=== PATIENT | male | born 1970 | race Caucasian/White ===

== ENCOUNTER 2018-07-29 13:11 | Emergency (ER) | payer BC, MEDICARE ==
[2018-07-29] MEDS ORDERED: Acetaminophen/Butalbital/Caffeine 325-50-40 MG Tab PO ONE (14:23)
[2018-07-29] MEDS ORDERED: Lactated Ringers 1,000 ML IV SCH (14:30)
--- NOTE | 2018-07-29 14:30 | EDM.PDOC ---
ED HPI GENERAL MEDICAL PROBLEM - General Chief Complaint: Gastrointestinal Problem Stated Complaint: DIARRHEA CHILLS AND BODY ACHES Time Seen by Provider: 07/29/18 13:39 Source of Information: Reports: Patient History Limitations: Reports: No Limitations - History of Present Illness INITIAL COMMENTS - FREE TEXT/NARRATIVE: 48 y/o M presents to ED for Diarrhea, body aches, chills x 1 day. He works at [employer], where there are multiple sick contacts- he is unsure if the have similar symptoms. He did not have flu vaccine. He also c/o MCDOWELL behind his eyes that Tylenol and ibuprofen have not helped relieve. He c/o lower abdominal pain, diarrhea 5x yesterday and x1 today, no blood in the stool, Fever /chills yesterday, body aches. He denies N/V, decreased appetite, SOB, CP, wheezing, cough. He does have a h/o diverticulitis and he states the abdominal pain feels similar to that. He also has h/o hospitalization 5 years ago for PNA and PE d/t rheumatoid arthritis medication "killing my immune system". He has had appendectomy. Headache Pain Score (Numeric/FACES): 7 Generalized Pain Score (Numeric/FACES): 8 - Related Data Allergies Allergy/AdvReac Type Severity Reaction Status Date / Time cefazolin [From Anc] Allergy Redness Verified 07/29/18 13:37 grape fruit juice Allergy Hives Uncoded 07/29/18 13:37 Home Meds: Home Meds DULoxetine [Cymbalta] 30 mg PO ASDIRECTED 03/30/18 [History] DULoxetine [Cymbalta] 60 mg PO ASDIRECTED 03/30/18 [History] Diltiazem HCl [Cartia Xt] 240 mg PO ASDIRECTED 03/30/18 [History] Doxycycline [Vibramycin] 100 mg PO BID #12 cap 03/30/18 [Rx] Ergocalciferol (Vitamin D2) [Drisdol] 50,000 unit PO ASDIRECTED 03/30/18 [ History] Hydroxychloroquine [Plaquenil] 200 mg PO ASDIRECTED 03/30/18 [History] Indapamide 1.25 mg PO ASDIRECTED 03/30/18 [History] Levothyroxine 25 mcg PO ASDIRECTED 03/30/18 [History] Lisinopril 40 mg PO ASDIRECTED 03/30/18 [History] Mirtazapine [Remeron] 45 mg PO ASDIRECTED 03/30/18 [History] Saxagliptin HCl [Onglyza] 2.5 mg PO ASDIRECTED 03/30/18 [History] Tofacitinib Citrate [Xeljanz] 5 mg PO ASDIRECTED 03/30/18 [History] atorvaSTATin Calcium [Atorvastatin Calcium] 80 mg PO ASDIRECTED 03/30/18 [ History] glipiZIDE [Glipizide Xl] 5 mg PO BID 03/30/18 [History] hydrALAZINE [Apresoline] 10 mg PO ASDIRECTED 03/30/18 [History] traZODone HCl [Trazodone HCl] 100 mg PO ASDIRECTED 03/30/18 [History] Past Medical History Cardiovascular History: Reports: Hypertension Respiratory History: Reports: Intubation, Previous, PE Other Respiratory History: pt was in "coma" for 1 month Musculoskeletal History: Reports: RA Neurological History: Reports: Other (See Below) Other Neuro History: pt was in a "coma" for 1 month Psychiatric History: Reports: Depression, PTSD Endocrine/Metabolic History: Reports: Diabetes, Type II - Past Surgical History Neurological Surgical History: Reports: Other (See Below) Social & Family History - Tobacco Use Smoking Status *Q: Never Smoker - Caffeine Use Caffeine Use: Reports: Soda - Recreational Drug Use Recreational Drug Use: No - Living Situation & Occupation Occupation: Employed ED ROS GENERAL - Review of Systems Review Of Systems: See Below Constitutional: Reports: No Symptoms. Denies: Fever, Chills, Decreased Appetite HEENT: Reports: Other (MCDOWELL) Respiratory: Reports: No Symptoms. Denies: Shortness of Breath, Cough Cardiovascular: Reports: Blood Pressure Problem. Denies: Chest Pain, Edema Endocrine: Reports: No Symptoms GI/Abdominal: Reports: Abdominal Pain (lower quadrants), Diarrhea. Denies: Decreased Appetite, Nausea : Reports: No Symptoms Musculoskeletal: Reports: No Symptoms Skin: Reports: Rash (intermittent rash on R arm and chest) Neurological: Reports: Headache. Denies: Dizziness ED EXAM, GI/ABD - Physical Exam Exam: See Below Exam Limited By: No Limitations General Appearance: Alert Eyes: Bilateral: EOMI Ears: Normal External Exam, Hearing Grossly Normal Nose: Normal Inspection, Normal Mucosa, No Blood Throat/Mouth: Normal Teeth, Normal Gums, Normal Oropharynx, Normal Voice, No Airway Compromise. No: Normal Lips (dry) Head: Atraumatic, Normocephalic Neck: Normal Inspection, Supple, Non-Tender, Full Range of Motion Respiratory/Chest: No Respiratory Distress, Lungs Clear, Normal Breath Sounds, No Accessory Muscle Use, Chest Non-Tender Cardiovascular: Normal Peripheral Pulses, Regular Rate, Rhythm, No Edema, No Gallop, No JVD, No Murmur, No Rub GI/Abdominal Exam: Soft, No Organomegaly, No Distention, Rebound, Tender (lower quadrants), Abnormal Bowel Sounds (hyperactive) Course - Vital Signs Last Recorded V/S: Last Vital Signs Temp 98.0 F 07/29/18 13:37 Pulse 84 07/29/18 13:37 Resp 18 07/29/18 13:37 BP 138/93 H 07/29/18 13:37 Pulse Ox 93 L 07/29/18 13:37 - Orders/Labs/Meds Orders: Active Orders 24 hr Category Date Time Status Abdomen w Cont [CT] Stat Exams 07/29/18 14:22 Taken Lactated Ringers [Ringers, Lactated] 1,000 ml Med 07/29/18 14:30 Active IV ASDIRECTED Sodium Chloride 0.9% [Saline Flush] Med 07/29/18 15:29 Active 10 ml FLUSH ONETIME PRN Medication Orders Lactated Ringer's (Ringers, Lactated) 1,000 mls @ 999 mls/hr IV ASDIRECTED YANA Last Admin: 07/29/18 14:42 Dose: 999 mls/hr Sodium Chloride (Saline Flush) 10 ml FLUSH ONETIME PRN PRN Reason: IV FLUSH Last Admin: 07/29/18 15:43 Dose: 10 ml Labs: Laboratory Tests 07/29/18 07/29/18 Range/Units 14:35 14:35 WBC 9.07 (4.23-9.07) K/mm3 RBC 4.88 (4.63-6.08) M/mm3 Hgb 14.3 (13.7-17.5) gm/L Hct 43.0 (40.1-51.0) % MCV 88.1 (79.0-92.2) fl MCH 29.3 (25.7-32.2) pg MCHC 33.3 (32.2-35.5) g/dl RDW Std Deviation 46.8 H (35.1-43.9) fL Plt Count 249 (163-337) K/mm3 MPV 9.9 (9.4-12.3) fl Neut % (Auto) 66.1 (34.0-67.9) % Lymph % (Auto) 15.4 L (21.8-53.1) % [place] % (Auto) 17.0 H (5.3-12.2) % Eos % (Auto) 1.2 (0.8-7.0) Baso % (Auto) 0.1 (0.1-1.2) % Neut # (Auto) 5.99 H (1.78-5.38) K/mm3 Lymph # (Auto) 1.40 (1.32-3.57) K/mm3 [place] # (Auto) 1.54 H (0.30-0.82) K/mm3 Eos # (Auto) 0.11 (0.04-0.54) K/mm3 Baso # (Auto) 0.01 (0.01-0.08) K/mm3 Manual Slide Review Normal smear Sodium 143 (136-145) mEq/L Potassium 2.8 L (3.5-5.1) mEq/L Chloride 102 (98-107) mEq/L Carbon Dioxide 27 (21-32) mEq/L Anion Gap 16.8 H (5-15) BUN 17 (7-18) mg/dL Creatinine 1.3 (0.7-1.3) mg/dL Est Cr Clr Drug Dosing 75.44 mL/min Estimated GFR (MDRD) 59 (>60) mL/min BUN/Creatinine Ratio 13.1 L (14-18) Glucose 105 (74-106) mg/dL Calcium 8.7 (8.5-10.1) mg/dL Total Bilirubin 0.5 (0.2-1.0) mg/dL AST 25 (15-37) U/L ALT 27 (16-63) U/L Alkaline Phosphatase 60 (46-116) U/L Total Protein 7.4 (6.4-8.2) g/dl Albumin 3.6 (3.4-5.0) g/dl Globulin 3.8 gm/dL Albumin/Globulin Ratio 1.0 (1-2) Meds: Medications Generic Name Dose Route Start Last Admin Trade Name Freq PRN Reason Stop Dose Admin Lactated Ringer's 1,000 mls @ 999 mls/hr 07/29/18 14:30 07/29/18 14:42 Ringers, Lactated IV 999 mls/hr ASDIRECTED YANA Administration Sodium Chloride 10 ml 07/29/18 15:29 07/29/18 15:43 Saline Flush FLUSH 10 ml ONETIME PRN Administration IV FLUSH Discontinued Medications Generic Name Dose Route Start Last Admin Trade Name Freq PRN Reason Stop Dose Admin Acetaminophen/Butalbital/Caffeine 1 tab 07/29/18 14:23 07/29/18 14:47 Fioricet 325-50-40 Mg PO 07/29/18 14:24 1 tab ONETIME ONE Administration Diatrizoate Meglum/Diatrizoate Sod 120 ml 07/29/18 15:29 07/29/18 15:43 Gastrografin 37% PO 07/29/18 15:30 90 ml ONETIME ONE Administration Iopamidol 100 ml 07/29/18 15:29 07/29/18 15:43 Isovue-300 (61%) IVPUSH 07/29/18 15:30 100 ml ONETIME ONE Administration Potassium Chloride 40 meq 07/29/18 15:44 07/29/18 16:17 Klor-Con M20 PO 07/29/18 15:45 40 meq ONETIME ONE Administration - Re-Assessments/Exams Free Text/Narrative Re-Assessment/Exam: 07/29/18 14:29 I have ordered IVF, CBC, CMP, Influenza and CT abdomen. 07/29/18 15:43 Labs WNL except potassium low at 2.8 and Agap elevated at 16.8. He is receiving 1L lactated ringers. Will replace potassium. Influenza negative. Still awaiting CT abdomen. 07/29/18 16:47 CT abdomen report back. There is a "boggy thickwalled appearance of the R hemicolon may indicate infection or colitis". At this time, unsure if caused by bacteria or virus, but he has no fever and no leukocytosis. At this time, it seems conservative measures with diet and symptomatic relief is appropriate. Explained this and he understands and agrees with this plan. Follow up with PCP or return to ED if new or worsening symptoms. Departure - Departure Time of Disposition: 16:49 Disposition: Home, Self-Care 01 Condition: Good, Fair Clinical Impression: Gastroenteritis, Colitis - Discharge Information *PRESCRIPTION DRUG MONITORING PROGRAM REVIEWED*: Not Applicable *COPY OF PRESCRIPTION DRUG MONITORING REPORT IN PATIENT ARIADNA: Not Applicable Instructions: Dehydration, Adult, [id number], Abdominal Pain, Adult, Easy-to- Read, Diarrhea, Adult, [id number], Food Choices to Help Relieve Diarrhea, Adult, Viral Gastroenteritis, Adult, [id number] Referrals: Sebastian Flood MD [Primary Care Provider] - Forms: ED Department Discharge Additional Instructions: You were seen in the ED today for diarrhea and abdominal pain. No fever or chills today. Your labs did not show signs of infection. CT abdomen showed there is some evidence of nonspecific inflammation of the colon, may or may not be caused by infection. At this time, conservative treatment is recommended. BRAT diet (Banana, Rice, Applesauce, [place]) and plenty of fluids (Water, Gatorade, Pedialyte) and rest are recommended. Return to work only if you feel up to it, otherwise get plenty of rest. Return to ED if new or worsening symptom. Follow up with your primary care doctor for further workup. - My Orders Last 24 Hours: My Active Orders 07/29/18 14:22 Abdomen w Cont [CT] Stat 07/29/18 14:30 Lactated Ringers [Ringers, Lactated] 1,000 ml IV ASDIRECTED 07/29/18 15:29 Sodium Chloride 0.9% [Saline Flush] 10 ml FLUSH ONETIME PRN - Assessment/Plan Last 24 Hours: My Active Orders 07/29/18 14:22 Abdomen w Cont [CT] Stat 07/29/18 14:30 Lactated Ringers [Ringers, Lactated] 1,000 ml IV ASDIRECTED 07/29/18 15:29 Sodium Chloride 0.9% [Saline Flush] 10 ml FLUSH ONETIME PRN
[2018-07-29] MEDS ORDERED: Sodium Chloride 0.9% 10 ML Syringe FLUSH PRN (15:29)
[2018-07-29] MEDS ORDERED: Iopamidol 612 MG/ML 100 ML Bottle IVPUSH ONE (15:29)
[2018-07-29] MEDS ORDERED: Diatrizoate Meglumine/Diatrizoate Sodium 37% 120 ML Bottle PO ONE (15:29)
[2018-07-29] MEDS ORDERED: Potassium Chloride 20 MEQ Tab.ER PO ONE (15:44)
--- NOTE | 2018-07-30 14:15 | CT ---
CT abdomen and pelvis Technique: Multiple axial sections were obtained from above the dome of the diaphragm inferiorly through the pubic symphysis. Intravenous and oral contrast was utilized. Delayed images were obtained through the bladder. Comparison: No previous study. Findings: Small portion of the visualized lung bases shows emphysematous change but nothing acute. Liver contains no focal parenchymal abnormality. Gallbladder contains no calcified gallstones. Spleen appears within normal limits. Adrenal glands show no nodule. Pancreas is within normal limits. Small cortical cyst is noted within the mid right kidney measuring 8 mm. Two larger cortical cysts are seen within the left kidney with largest measuring 2.5 cm. No additional abnormality is appreciated within the kidneys. Aorta shows no aneurysm. No retroperitoneal adenopathy or mesenteric abnormalities are seen. Small fat-containing periumbilical hernia is noted. No retroperitoneal adenopathy is seen. No mesenteric abnormalities are identified. Slightly prominent lymph nodes are seen within the right lower abdomen. Mild bowel wall thickening is noted within the right colon and cecum. Appendix not visualized with certainty. Previous sigmoid surgery is noted with anastomotic sutures being seen. No inflammatory change or free fluid is seen. Increased fluid is seen within the left colon and sigmoid regions. Bone windows settings were reviewed which shows mild scattered degenerative change within the spine. Artifact is noted from left hip prosthesis. Small fat-containing left inguinal hernia is noted. Delayed images show contrast within the distal ureters and within the bladder. Impression: 1. Bowel wall thickening within the right colon and cecum. This is compatible with nonspecific colitis. Slightly prominent lymph nodes are seen within the right lower abdomen most likely on an inflammatory basis from the right colonic process. 2. Emphysematous change within both lung bases. 3. Increased fluid within the left colon and sigmoid regions are present in the possibility of diarrhea. Please correlate. 4. Other incidental findings as noted above. Diagnostic code #3 I agree with preliminary report from [facility], finalized on 07/29/18, 5:31 PM Central Time
== END 2018-07-29 17:05 | disposition home or self-care (01) ==
LOC: JD.ED 13:11
DX: K52.9 Noninfective gastroenteritis and colitis, unspecified (principal); I10 Essential (primary) hypertension; E11.9 Type 2 diabetes mellitus without complications; M06.9 Rheumatoid arthritis, unspecified; Z79.899 Other long term (current) drug therapy; Z91.018 Allergy to other foods; Z90.49 Acquired absence of other specified parts of digestive tract
CPT/HCPCS: 36415; 74160; 80053; 85025; 87804; 96360; 99284; A9270; J7120; Q9963; Q9967

== ENCOUNTER 2019-03-22 08:23 | Day surgery (SDC) | payer BC, MEDICARE ==
[~2019-03-22 08:23] MED LIST: Lactated Ringers 1,000 ML IV SCH; Lidocaine 1%/Sod Bicarbonate in NS 8.4% 1 ML Syringe IDERM PRN; Sodium Chloride 0.9% 10 ML Syringe FLUSH PRN
--- NOTE | 2019-03-22 09:08 | PCM.PREANE ---
Preanesthetic Assessment - Procedure Proposed Procedure: Colonoscopy - Anesthesia/Transfusion/Family Hx Anesthesia History: Prior Anesthesia Without Reaction Family History of Anesthesia Reaction: No Transfusion History: No Prior Transfusion(s) - Review of Systems General: No Symptoms Pulmonary: No Symptoms Cardiovascular: No Symptoms Gastrointestinal: No Symptoms Neurological: No Symptoms Other: Reports: Diabetes (168 this am), Thyroid Problems (hypothyroid) - Physical Assessment NPO Status Date: 03/21/19 NPO Status Time: 00:00 Height: 1.83 m Weight: 90.6 kg ASA Class: 2 Mental Status: Alert & Oriented x3 Airway Class: Mallampati = 1 Dentition: Reports: Normal Dentition Thyro-Mental Finger Breadths: 3 Mouth Opening Finger Breadths: 3 ROM/Head Extension: Full Lungs: Clear to Auscultation, Normal Respiratory Effort Cardiovascular: Irregular Rhythm - Allergies Allergies/Adverse Reactions: Allergies Allergy/AdvReac Type Severity Reaction Status Date / Time cefazolin [From Ancef] Allergy Redness Verified 03/21/19 13:00 grape fruit juice Allergy Hives Uncoded 03/21/19 13:00 - Blood Blood Available: No Product(s) Available: None - Anesthesia Plan Pre-Op Medication Ordered: None - Acknowledgements Anesthesia Type Planned: MAC Pt an Appropriate Candidate for the Planned Anesthesia: Yes Alternatives and Risks of Anesthesia Discussed w Pt/Guardian: Yes Pt/Guardian Understands and Agrees with Anesthesia Plan: Yes PreAnesthesia Questionnaire HEENT History: Reports: Allergic Rhinitis, Impaired Vision, Other (See Below) Other HEENT History: wears glasses Cardiovascular History: Reports: High Cholesterol, Hypertension Respiratory History: Reports: None Other Respiratory History: pt was in "coma" for 1 month Gastrointestinal History: Reports: Diverticulosis, Other (See Below) Other Gastrointestinal History: cdff with fecal transplant Genitourinary History: Reports: None [employer] EQUIPMENT [employer] ENGINEER History: Reports: None Musculoskeletal History: Reports: Arthritis, RA Neurological History: Reports: Migraines Other Neuro History: pt was in a "coma" for 1 month Psychiatric History: Reports: Anxiety, Depression Endocrine/Metabolic History: Reports: Diabetes, Type II, Hypothyroidism Hematologic History: Reports: None Immunologic History: Reports: None Oncologic (Cancer) History: Reports: None Dermatologic History: Reports: None - Past Surgical History Cardiovascular Surgical History: Reports: None Respiratory Surgical History: Reports: None GI Surgical History: Reports: Other (See Below) Other GI Surgeries/Procedures: colostomy with take down 15 years ago (approx 2003) Female Surgical History: Reports: None Male Surgical History: Reports: None Endocrine Surgical History: Reports: None Neurological Surgical History: Reports: None Musculoskeletal Surgical History: Reports: Hip Replacement, Shoulder Surgery Other Musculoskeletal Surgeries/Procedures:: left total hip replacement, right shoulder surgery, bilateral wrist replacements Oncologic Surgical History: Reports: None Dermatological Surgical History: Reports: None - SUBSTANCE USE Smoking Status *Q: Never Smoker Second Hand Smoke Exposure: No Days Per Week of Alcohol Use: 0 Number of Drinks Per Day: 0 Total Drinks Per Week: 0 Recreational Drug Use History: No - HOME MEDS Home Medications: Home Meds DULoxetine [Cymbalta] 30 mg PO DAILY 03/30/18 [History] DULoxetine [Cymbalta] 60 mg PO DAILY 03/30/18 [History] Diltiazem HCl [Cartia Xt] 240 mg PO DAILY 03/30/18 [History] Hydroxychloroquine [Plaquenil] 200 mg PO DAILY 03/30/18 [History] Levothyroxine 25 mcg PO DAILY 03/30/18 [History] Lisinopril 40 mg PO DAILY 03/30/18 [History] Mirtazapine [Remeron] 45 mg PO BEDTIME 03/30/18 [History] Saxagliptin HCl [Onglyza] 2.5 mg PO DAILY 03/30/18 [History] Tofacitinib Citrate [Xeljanz] 5 mg PO Q12H 03/30/18 [History] atorvaSTATin Calcium [Atorvastatin Calcium] 80 mg PO ASDIRECTED 03/30/18 [ History] glipiZIDE [Glipizide Xl] 5 mg PO BID 03/30/18 [History] hydrALAZINE [Apresoline] 10 mg PO ASDIRECTED 03/30/18 [History] Indapamide 2.5 mg PO DAILY 03/21/19 [History] hydrALAZINE HCl [Hydralazine HCl] 10 mg PO BID 03/21/19 [History] - CURRENT (IN HOUSE) MEDS Current Meds: Current Medications Lactated Ringer's (Ringers, Lactated) 1,000 mls @ 125 mls/hr IV ASDIRECTED YANA Stop: 03/22/19 23:00 Lidocaine/Sodium Bicarbonate (Buffered Lidocaine 1% In Ns 8.4%) 0.25 ml IDERM ONETIME PRN PRN Reason: Prior to IV Start Stop: 03/22/19 18:00 Sodium Chloride (Saline Flush) 10 ml FLUSH ASDIRECTED PRN PRN Reason: Keep Vein Open Stop: 03/22/19 18:00
[2019-03-22] MEDS ORDERED: Propofol 200 MG/20 ML SDV ONE ×4 (09:59→11:06)
[2019-03-22] MEDS ORDERED: Lidocaine 1% 4 ML ONE (10:00)
[2019-03-22] MEDS ORDERED: Midazolam 1 MG/ML 2 ML SDV ONE (10:00)
[2019-03-22] MEDS ORDERED: fentaNYL 100 MCG/2 ML SDV ONE (10:00)
[2019-03-22] MEDS ORDERED: Lactated Ringers 1,000 ML ONE (11:25)
--- NOTE | 2019-03-22 11:26 | PCM.PRGIL ---
Lower GI Endoscopy Procedure Procedure:: Reports: Colonoscopy Informed Consent Obtained?: Yes Indications:: Reports: Screening Rectodigital Exam:: Reports: Normal Exam Sedation:: Reports: IV Depth Reached (Location):: Reports: Ascending Colon Depth Reached (cm):: 90 - Findings Rectal:: Reports: Normal Hemorrhoids:: Reports: None Previous Colon Surgery (Location):: Reports: Sigmoid Previous Colon Surgery Comments:: End to side colorectal anastomosis visualized and appears healthy. A few scattered diverticula noted in descending colon. Stenosis (Location):: Reports: None Complications:: Reports: None Cultures:: Reports: None (Digital exam unremarkable. Prep was good. Unable to advance the scope much further than the distal descending colon due to looping. No significant intraluminal pathology noted. Anastomosis from prior sigmoid colectomy for diverticular disease noted. Retroflexion in rectum performed. )
--- NOTE | 2019-03-22 11:31 | PCM48HPAN ---
Post Anesthesia Note - EVALUATION WITHIN 48HRS OF ANESTHETIC Vital Signs in Normal Range: Yes Patient Participated in Evaluation: Yes Respiratory Function Stable: Yes Airway Patent: Yes Cardiovascular Function Stable: Yes Hydration Status Stable: Yes Pain Control Satisfactory: Yes Nausea and Vomiting Control Satisfactory: Yes Mental Status Recovered: Yes Vital Signs: Last Vital Signs Temp 36.7 C 03/22/19 08:35 Pulse 55 L 03/22/19 08:35 Resp 16 03/22/19 08:35 BP 149/95 H 03/22/19 08:35 Pulse Ox 92 L 03/22/19 08:35 - COMMENTS/OBSERVATIONS Free Text/Narrative:: no anesthesia complications noted
== END 2019-03-22 12:45 | disposition home or self-care (01) ==
LOC: JD.SDS 08:23
PROVIDERS: ATTEND Surgery
DX: Z12.11 Encounter for screening for malignant neoplasm of colon (principal); K57.30 Diverticulosis of large intestine without perforation or abscess without bleeding; I10 Essential (primary) hypertension; E11.9 Type 2 diabetes mellitus without complications; E03.9 Hypothyroidism, unspecified; F41.9 Anxiety disorder, unspecified; M06.9 Rheumatoid arthritis, unspecified; Z88.1 Allergy status to other antibiotic agents; Z90.49 Acquired absence of other specified parts of digestive tract; Z86.010 Personal history of colon polyps; Z87.19 Personal history of other diseases of the digestive system; Z79.84 Long term (current) use of oral hypoglycemic drugs; Z79.899 Other long term (current) drug therapy; Z98.890 Other specified postprocedural states
CPT/HCPCS: 45378; 82962; J2001; J2250; J2704; J3010; J7120; 00812

== ENCOUNTER 2019-08-05 12:38 | Emergency (ER) | payer BC, MEDICARE ==
[2019-08-05] MEDS ORDERED: Sodium Chloride 0.9% 10 ML Syringe FLUSH PRN (14:15)
[2019-08-05] MEDS ORDERED: Ketorolac 30 MG/ML SDV IVPUSH ONE (14:19)
[2019-08-05] MEDS ORDERED: Sodium Chloride 0.9% 1,000 ML IV ONE (14:19)
[2019-08-05] MEDS ORDERED: Ondansetron 4 MG/2 ML SDV IVPUSH ONE (14:19)
--- NOTE | 2019-08-05 14:30 | EDM.PDOC ---
ED HPI GENERAL MEDICAL PROBLEM - General Chief Complaint: Respiratory Problem Stated Complaint: NAUSEA (POSS EXPOSURE TO BLACK MOLD) Time Seen by Provider: 08/05/19 13:56 Source of Information: Reports: Patient, RN Notes Reviewed History Limitations: Reports: No Limitations - History of Present Illness INITIAL COMMENTS - FREE TEXT/NARRATIVE: Patient is a 49-year-old male who presents to the ED for the evaluation of possible exposure to black mold. 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 He states that this is the second week that he is worked there, that after he gets done working there, he gets increased nausea, increased respiratory difficulty, and generalized feelings of not being well. Patient is complaining of about not being able to catch his breath, nausea with 2 episodes of vomiting today. He is feels as if his stomach is just very unsettled with some mild cramping noted. Patient states he has multiple afflictions for his past medical history to include rheumatoid arthritis, diabetes, etc. His primary care provider is Dr. Rosado in [place]. As he does work in elementary school, he has likely had sick contacts. He did not receive his flu shot this year. He states he is having some fevers and chills, nausea and vomiting but no diarrhea, he is having shortness of breath and chest pressure type sensations but no chest pain. Abdomen Pain Score (Numeric/FACES): 5 - Related Data Allergies Allergy/AdvReac Type Severity Reaction Status Date / Time cefazolin [From Anc] Allergy Rash Verified 03/22/19 09:18 grape fruit juice Allergy Hives Uncoded 03/21/19 13:00 Home Meds: Home Meds DULoxetine [Cymbalta] 30 mg PO DAILY 03/30/18 [History] DULoxetine [Cymbalta] 60 mg PO DAILY 03/30/18 [History] Diltiazem HCl [Cartia Xt] 240 mg PO DAILY 03/30/18 [History] Hydroxychloroquine [Plaquenil] 200 mg PO DAILY 03/30/18 [History] Levothyroxine 25 mcg PO DAILY 03/30/18 [History] Lisinopril 40 mg PO DAILY 03/30/18 [History] Saxagliptin HCl [Onglyza] 2.5 mg PO DAILY 03/30/18 [History] Tofacitinib Citrate [Xeljanz] 5 mg PO Q12H 03/30/18 [History] atorvaSTATin Calcium [Atorvastatin Calcium] 80 mg PO QAM 03/30/18 [History] glipiZIDE [Glipizide Xl] 5 mg PO BID 03/30/18 [History] hydrALAZINE [Apresoline] 10 mg PO ASDIRECTED 03/30/18 [History] Indapamide 2.5 mg PO DAILY 03/21/19 [History] Past Medical History HEENT History: Reports: Allergic Rhinitis, Impaired Vision, Other (See Below) Other HEENT History: wears glasses Cardiovascular History: Reports: High Cholesterol, Hypertension Gastrointestinal History: Reports: Diverticulosis, Other (See Below) Other Gastrointestinal History: cdiff with fecal transplant Musculoskeletal History: Reports: Arthritis, RA Neurological History: Reports: Migraines, Other (See Below) Other Neuro History: pt was in a "coma" for 1 month Psychiatric History: Reports: Anxiety, Depression Endocrine/Metabolic History: Reports: Diabetes, Type II, Hypothyroidism - Infectious Disease History Infectious Disease History: Reports: C-Difficile - Past Surgical History GI Surgical History: Reports: Other (See Below) Other GI Surgeries/Procedures: colostomy with take down 15 years ago (approx 2003) Musculoskeletal Surgical History: Reports: Hip Replacement, Shoulder Surgery Other Musculoskeletal Surgeries/Procedures:: left total hip replacement, right shoulder surgery, bilateral wrist replacements Social & Family History - Tobacco Use Smoking Status *Q: Never Smoker - Caffeine Use Caffeine Use: Reports: None - Recreational Drug Use Recreational Drug Type: Reports: Marijuana/Hashish Other Recreational Drug Type: bedfore bed - Living Situation & Occupation Occupation: Employed ED ROS GENERAL - Review of Systems Review Of Systems: See Below Constitutional: Reports: Fever, Chills, Malaise (generalized), Decreased Appetite Respiratory: Reports: Shortness of Breath. Denies: Cough Cardiovascular: Reports: Chest Pain (chest pressure) GI/Abdominal: Reports: Abdominal Pain (stomach "cramping"), Decreased Appetite, Nausea, Vomiting. Denies: Constipation, Diarrhea : Denies: Dysuria, Frequency, Urgency Neurological: Reports: Headache. Denies: Confusion Psychiatric: Reports: Anxiety ED EXAM, GENERAL - Physical Exam Exam: See Below Exam Limited By: No Limitations General Appearance: Alert, WD/WN, No Apparent Distress Eye Exam: Bilateral Eye: EOMI, Normal Inspection, PERRL Ears: Normal External Exam Nose: Normal Inspection Throat/Mouth: Normal Inspection, Normal Lips, Normal Teeth, Normal Gums, Normal Oropharynx, Normal Voice, No Airway Compromise Head: Atraumatic, Normocephalic Neck: Normal Inspection Respiratory/Chest: No Respiratory Distress, Lungs Clear, Normal Breath Sounds, No Accessory Muscle Use, Chest Non-Tender Cardiovascular: Normal Peripheral Pulses, Regular Rate, Rhythm, No Murmur Peripheral Pulses: 3+: Radial (L), Radial (R) GI/Abdominal: Normal Bowel Sounds, Soft, Non-Tender, No Distention, No Mass Extremities: Normal Inspection, Normal Capillary Refill Neurological: Alert, Oriented, Normal Cognition, No Motor/Sensory Deficits Psychiatric: Normal Affect, Normal Mood Skin Exam: Warm, Dry, Intact, Normal Color, No Rash EKG INTERPRETATION EKG Date: 08/05/19 Time: 14:40 Rhythm: NSR Rate (Beats/Min): 69 Robertson: Normal P-Wave: Present QRS: Normal ST-T: Normal QT: Prolonged OH/PQ Interval: prolonged Comparison: NA - No Prior EKG EKG Interpretation Comments: ? old inferior infarct, no acute ischemic change noted by myself or Dr. Rees. Course - Vital Signs Last Recorded V/S: Last Vital Signs Temp 98.0 F 08/05/19 13:00 Pulse 72 08/05/19 13:00 Resp 20 08/05/19 13:00 BP 134/92 H 08/05/19 13:00 Pulse Ox 93 L 08/05/19 13:00 - Orders/Labs/Meds Orders: Active Orders 24 hr Category Date Time Status EKG Documentation Completion [RC] STAT Care 08/05/19 14:28 Active Peripheral IV Care [RC] . DIRECTED Care 08/05/19 14:15 Active MISC TEST Stat Lab 08/05/19 14:40 Received Sodium Chloride 0.9% [Saline Flush] Med 08/05/19 14:15 Active 10 ml FLUSH ASDIRECTED PRN Peripheral IV Insertion Adult [OM.PC] Stat Oth 08/05/19 14:15 Ordered Medication Orders Sodium Chloride (Saline Flush) 10 ml FLUSH ASDIRECTED PRN PRN Reason: Keep Vein Open Last Admin: 08/05/19 14:45 Dose: 10 ml Labs: Laboratory Tests 08/05/19 08/05/19 08/05/19 Range/Units 14:40 14:40 14:40 WBC 11.31 H (4.23-9.07) K/mm3 RBC 5.21 (4.63-6.08) M/mm3 Hgb 15.2 (13.7-17.5) gm/dl Hct 47.9 (40.1-51.0) % MCV 91.9 D (79.0-92.2) fl MCH 29.2 (25.7-32.2) pg MCHC 31.7 L (32.2-35.5) g/dl RDW Std Deviation 45.9 H (35.1-43.9) fL Plt Count 291 (163-337) K/mm3 MPV 10.4 (9.4-12.3) fl Neutrophils % (Manual) 90 H (40-60) % Band Neutrophils % 0 (0-10) % Lymphocytes % (Manual) 5 L (20-40) % Atypical Lymphs % 0 % Monocytes % (Manual) 3 (2-10) % Eosinophils % (Manual) 1 (0.8-7.0) % Basophils % (Manual) 1 (0.2-1.2) Platelet Estimate Adequate Plt Morphology Comment Normal RBC Morph Comment Normal Sodium 141 (136-145) mEq/L Potassium 3.5 (3.5-5.1) mEq/L Chloride 103 (98-107) mEq/L Carbon Dioxide 27 (21-32) mEq/L Anion Gap 14.5 (5-15) BUN 16 (7-18) mg/dL Creatinine 1.1 (0.7-1.3) mg/dL Est Cr Clr Drug Dosing 88.18 mL/min Estimated GFR (MDRD) > 60 (>60) mL/min BUN/Creatinine Ratio 14.5 (14-18) Glucose 135 H (74-106) mg/dL Calcium 8.9 (8.5-10.1) mg/dL Total Bilirubin 0.7 (0.2-1.0) mg/dL AST 26 (15-37) U/L ALT 38 (16-63) U/L Alkaline Phosphatase 66 (46-116) U/L Troponin I < 0.017 (0.00-0.056) ng/mL Total Protein 7.4 (6.4-8.2) g/dl Albumin 4.0 (3.4-5.0) g/dl Globulin 3.4 gm/dL Albumin/Globulin Ratio 1.2 (1-2) Meds: Medications Generic Name Dose Route Start Last Admin Trade Name Freq PRN Reason Stop Dose Admin Sodium Chloride 10 ml 08/05/19 14:15 08/05/19 14:45 Saline Flush FLUSH 10 ml ASDIRECTED PRN Administration Keep Vein Open Discontinued Medications Generic Name Dose Route Start Last Admin Trade Name Freq PRN Reason Stop Dose Admin Sodium Chloride 1,000 mls @ 999 mls/hr 08/05/19 14:19 08/05/19 14:44 Normal Saline IV 08/05/19 15:19 999 mls/hr ONETIME ONE Administration Ketorolac Tromethamine 30 mg 08/05/19 14:19 08/05/19 14:45 Toradol IVPUSH 08/05/19 14:20 30 mg ONETIME ONE Administration Ondansetron HCl 4 mg 08/05/19 14:19 08/05/19 14:44 Zofran IVPUSH 08/05/19 14:20 4 mg ONETIME ONE Administration - Re-Assessments/Exams Free Text/Narrative Re-Assessment/Exam: 08/05/19 14:34 Patient presents to the ED for the evaluation of possible black mold exposure and nausea. I did explain to the patient that this is somewhat of a nonemergent need to visit the ER, however he is adamant that he would like to be tested for black mold as he strongly thinks this is what is causing his issues. There is a serum send out test that I can order, I did make the patient know this, and he is aware that he will not get immediate answers today. Due to his provider being in [place], he will likely need follow-up through the ER by 1 of our providers when the test results. Nevertheless due to his general other complaints, I will order influenza screen, CBC, CMP, troponin, EKG and a chest x-ray to see if there is any other sort of issues that might be causing some of his symptoms. 08/05/19 15:29 CBC demonstrates a mildly elevated white blood cell count of 11.31, 90% neutrophils no bands. Metabolic panel is within normal limits, opponent is negative. Influenza screen is negative at today's visit. Chest x-ray demonstrates no sign of pneumonia, patient was not complaining of any urinary symptoms so I will not check a urinalysis at today's visit. At this time there is no other major afflictions that need to be checked, we will await results of the black mold exposure, and let the patient know when we get results hopefully. Departure - Departure Time of Disposition: 15:30 Disposition: Home, Self-Care 01 Condition: Fair Clinical Impression: Nausea, Mold suspected exposure - Discharge Information *PRESCRIPTION DRUG MONITORING PROGRAM REVIEWED*: No *COPY OF PRESCRIPTION DRUG MONITORING REPORT IN PATIENT ARIADNA: No Instructions: Nausea, Adult, [id number] Referrals: Sebastian Flood MD [Primary Care Provider] - Forms: ED Department Discharge Additional Instructions: You were evaluated in the ER today regarding your generalized symptoms and possible exposure to black mold. We were able to run a test for black mold exposure, however this is a send out and will take quite a few days to result. You will be called and made notified of the results when we receive them. This call will come from a private number , so please answer your phone if you should receive a call from a private number sometime this week. Other laboratory evaluation demonstrates no focal abnormalities that need emergent management at today's visit. At this time it is unclear whether or not these are due to your suspected exposure to black mold or not. You were given some IV fluids, and IV medications to help with your symptoms. Recommend you go home and try to keep yourself well-hydrated, recommend a bland diet for the next 24 to 48 hours and advance as tolerated. Please return to the ER at any time however if your symptoms change or worsen. Sepsis Event Note - Evaluation Sepsis Screening Result: No Definite Risk - Focused Exam Vital Signs: Vital Signs Temp Pulse Resp BP Pulse Ox 08/05/19 13:00 98.0 F 72 20 134/92 H 93 L Date Exam was Performed: 08/05/19 Time Exam was Performed: 15:58 - My Orders Last 24 Hours: My Active Orders 08/05/19 14:15 Peripheral IV Care [RC] . DIRECTED Sodium Chloride 0.9% [Saline Flush] 10 ml FLUSH ASDIRECTED PRN Peripheral IV Insertion Adult [OM.PC] Stat 08/05/19 14:28 EKG Documentation Completion [RC] STAT 08/05/19 14:40 MISC TEST Stat - Assessment/Plan Last 24 Hours: My Active Orders 08/05/19 14:15 Peripheral IV Care [RC] . DIRECTED Sodium Chloride 0.9% [Saline Flush] 10 ml FLUSH ASDIRECTED PRN Peripheral IV Insertion Adult [OM.PC] Stat 08/05/19 14:28 EKG Documentation Completion [RC] STAT 08/05/19 14:40 MISC TEST Stat
--- NOTE | 2019-08-05 15:25 | CR ---
Chest: 2 views of the chest were obtained. Comparison: No prior chest imaging is available. Heart size and mediastinum are normal. Linear density is noted within the left upper chest most likely due to scarring. Lungs otherwise are clear with no acute parenchymal change. Right shoulder prosthesis is noted. Minimal scoliosis is noted within the spine. Impression: 1. Findings as noted above. 2. Nothing acute is suspected. Diagnostic code #2 This report was dictated in [place] Standard Time
[2019-08-05] MEDS ORDERED: Ondansetron 4 MG Tab.DIS PO ONE (15:58)
== END 2019-08-05 16:10 | disposition home or self-care (01) ==
LOC: JD.ED 12:38
DX: R11.2 Nausea with vomiting, unspecified (principal); E78.00 Pure hypercholesterolemia, unspecified; I10 Essential (primary) hypertension; M06.9 Rheumatoid arthritis, unspecified; F41.9 Anxiety disorder, unspecified; F32.9 Major depressive disorder, single episode, unspecified; E11.9 Type 2 diabetes mellitus without complications; E03.9 Hypothyroidism, unspecified; Z79.84 Long term (current) use of oral hypoglycemic drugs; Z79.899 Other long term (current) drug therapy; Z77.120 Contact with and (suspected) exposure to mold (toxic); Z91.018 Allergy to other foods
CPT/HCPCS: 36415; 71046; 80053; 84484; 85007; 85027; 87804; 93005; 96361; 96374; 96375; 99284; A9270; J1885; J2405; J7030

== ENCOUNTER 2019-08-07 09:40 | Emergency (ER) | payer BC, MEDICARE ==
[2019-08-07] MEDS ORDERED: Metoclopramide 10 MG/2 ML SDV IVPUSH ONE (10:52)
[2019-08-07] MEDS ORDERED: Acetaminophen 325 MG Tab PO ONE (10:53)
--- NOTE | 2019-08-07 10:56 | EDM.PDOC ---
ED HPI GENERAL MEDICAL PROBLEM - General Chief Complaint: Headache Stated Complaint: NAUSEA/CHILLS/HEADACHE Time Seen by Provider: 08/07/19 10:55 Source of Information: Reports: Patient History Limitations: Reports: No Limitations - History of Present Illness INITIAL COMMENTS - FREE TEXT/NARRATIVE: 49-year-old male attends the ED continuing to feel unwell. Was seen over the weekend after developing illness on Tuesday last week which was August 03. He had spiked a fever that day was social with a cough headache and generalized myalgia. He was seen through the ED on Tuesday and influenza screen proved to be negative. He was having intermittent nausea and vomiting and is felt to have the flu. He started to feel better and went to work on Tuesday but was sent home from work and is continued to feel unwell since that time. Intermittent high fevers. Headache loss of appetite with intermittent nausea and vomiting. He vomited again this morning without eating. Had no diarrhea. Cough he states is minimal. He was concerned that he was exposed to black mold in the workplace over the last year and has been avoiding the gymnasium where there is water in the [place]. He has rheumatoid arthritis and is immunocompromise due to being on Plaquenil and Xeljanz--she has been taking since 2013. he has not been on steroids for 20 years. Take a Zofran this morning but it did not help stop the vomiting. Patient is a type II diabetic controlled with metformin and glipizide. Onset: Gradual Onset Date: 08/03/19 Duration: Day(s):, Constant, Getting Worse Location: Reports: Head (Persistent headache), Chest (Mild productive cough), Other (Fever and chills.) Quality: Reports: Other Severity: Moderate (Generalized sense of illness) Improves with: Reports: None Worsens with: Reports: Eating Context: Denies: Activity, Exercise, Lifting, Sick Contact, Trauma, Other Associated Symptoms: Reports: Chest Pain, Cough, Fever/Chills, Headaches, Loss of Appetite, Malaise, Weakness. 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 Headache Pain Score (Numeric/FACES): 6 Abdomen Pain Score (Numeric/FACES): 6 - Related Data Allergies Allergy/AdvReac Type Severity Reaction Status Date / Time cefazolin [From [facility]] Allergy Rash Verified 08/07/19 09:56 grape Allergy Hives Verified 08/07/19 09:57 Home Meds: Home Meds DULoxetine [Cymbalta] 30 mg PO DAILY 03/30/18 [History] DULoxetine [Cymbalta] 60 mg PO DAILY 03/30/18 [History] Diltiazem HCl [Cartia Xt] 240 mg PO DAILY 03/30/18 [History] Hydroxychloroquine [Plaquenil] 200 mg PO DAILY 03/30/18 [History] Levothyroxine 25 mcg PO DAILY 03/30/18 [History] Lisinopril 40 mg PO DAILY 03/30/18 [History] Saxagliptin HCl [Onglyza] 2.5 mg PO DAILY 03/30/18 [History] Tofacitinib Citrate [Xeljanz] 5 mg PO Q12H 03/30/18 [History] atorvaSTATin Calcium [Atorvastatin Calcium] 80 mg PO QAM 03/30/18 [History] glipiZIDE [Glipizide Xl] 5 mg PO BID 03/30/18 [History] hydrALAZINE [Apresoline] 10 mg PO DAILY 03/30/18 [History] Indapamide 2.5 mg PO DAILY 03/21/19 [History] Ondansetron [Zofran ODT] 4 mg PO Q8H PRN #12 tab.dis 08/05/19 [Rx] Ondansetron [Zofran ODT] 4 mg PO Q6H PRN #8 tab.dis 08/07/19 [Rx] Past Medical History HEENT History: Reports: Allergic Rhinitis, Impaired Vision, Other (See Below) Other HEENT History: wears glasses Cardiovascular History: Reports: High Cholesterol, Hypertension Respiratory History: Reports: Pneumonia, Recurrent Other Respiratory History: pt was in "coma" for 1 month Gastrointestinal History: Reports: Diverticulosis, Other (See Below) Other Gastrointestinal History: cdiff with fecal transplant Genitourinary History: Reports: Renal Disease, Other (See Below) Other Genitourinary History: states RA has affected kidney function. 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 Oncologic (Cancer) History: Reports: None Dermatologic History: Reports: None - Infectious Disease History Infectious Disease History: Reports: C-Difficile, Chicken Pox, MRSA, Other (See Below) Other Infectious Disease History: H1N1 - Past Surgical History GI Surgical History: Reports: Other (See Below) Other GI Surgeries/Procedures: colostomy with take down 15 years ago (approx 2003) Musculoskeletal Surgical History: Reports: Hip Replacement, Shoulder Surgery Other Musculoskeletal Surgeries/Procedures:: left total hip replacement, right shoulder surgery, bilateral wrist replacements Oncologic Surgical History: Reports: None Social & Family History - Tobacco Use Smoking Status *Q: Never Smoker Second Hand Smoke Exposure: No - Caffeine Use Caffeine Use: Reports: None Other Caffeine Use: rarely - Recreational Drug Use Recreational Drug Use: No - Living Situation & Occupation Occupation: Employed ED ROS GENERAL - Review of Systems Review Of Systems: See Below Constitutional: Reports: Fever, Chills, Malaise, Weakness, Fatigue, Decreased Appetite. Denies: Weight Loss HEENT: Reports: Glasses Respiratory: Reports: Cough. Denies: Shortness of Breath, Wheezing, Pleuritic Chest Pain Cardiovascular: Reports: No Symptoms (Mild minimal nonproductive cough.), Lightheadedness (When standing). Denies: Chest Pain, Blood Pressure Problem, Claudication, Edema, Orthopnea Endocrine: Reports: Fatigue GI/Abdominal: Reports: Nausea, Vomiting. Denies: Constipation, Diarrhea : Reports: No Symptoms Musculoskeletal: Reports: Muscle Pain Skin: Reports: No Symptoms (Generalized myalgia.) Neurological: Reports: Dizziness, Headache Psychiatric: Reports: No Symptoms - Physical Exam Exam: See Below Exam Limited By: No Limitations General Appearance: Alert, No Apparent Distress, Other (She does feel slightly warm to palpation. Temperature is 36.7 heart rate was 80 respiratory is 18 BP 148 105 pulse ox was 94%.) Eye Exam: Bilateral Eye: Normal Inspection, PERRL Ears: Normal TMs Throat/Mouth: Normal Inspection, Normal Oropharynx, Other Head Exam: Atraumatic, Normocephalic (Slightly dry and coated) Neck: Normal Inspection, Supple, Non-Tender, Full Range of Motion. No: Carotid Bruit, Lymphadenopathy (L), Lymphadenopathy (R) Respiratory/Chest: No Respiratory Distress, Lungs Clear, Normal Breath Sounds, No Accessory Muscle Use. No: Rhonchi, Wheezing Cardiovascular: Normal Peripheral Pulses, Regular Rate, Rhythm, No Edema, No Gallop, No Murmur, No Rub GI/Abdominal: Normal Bowel Sounds, No Organomegaly, No Abnormal Bruit, No Mass, Pelvis Stable (Tenderness in the epigastrium only.), Tender Neuro Exam (Abbreviated): Alert, Oriented, CN II-XII Intact, Normal Cognition, Normal Gait Back Exam: Normal Inspection, Full Range of Motion Extremities: Normal Inspection, Normal Range of Motion, Non-Tender, No Pedal Edema Psychiatric: Normal Affect, Normal Mood, Anxious (Jarad anxious.), Tearful Skin Exam: Dry, Intact, Normal Color Course - Vital Signs Last Recorded V/S: Last Vital Signs Temp 36.7 C 08/07/19 13:22 Pulse 78 08/07/19 13:22 Resp 12 08/07/19 13:22 BP 112/89 08/07/19 13:22 Pulse Ox 88 L 08/07/19 13:22 - Orders/Labs/Meds Orders: Active Orders 24 hr Category Date Time Status CULTURE BLOOD [BC] Stat Lab 08/07/19 11:25 Received CULTURE BLOOD [BC] Stat Lab 08/07/19 11:34 Received Blood Culture x2 Reflex Set [OM.PC] Stat Oth 08/07/19 10:54 Ordered Labs: Laboratory Tests 08/07/19 08/07/19 08/07/19 Range/Units 11:25 11:25 11:25 WBC 10.48 H (4.23-9.07) K/mm3 RBC 4.92 (4.63-6.08) M/mm3 Hgb 14.4 (13.7-17.5) gm/dl Hct 44.7 (40.1-51.0) % MCV 90.9 (79.0-92.2) fl MCH 29.3 (25.7-32.2) pg MCHC 32.2 (32.2-35.5) g/dl RDW Std Deviation 45.5 H (35.1-43.9) fL Plt Count 277 (163-337) K/mm3 MPV 10.2 (9.4-12.3) fl Neutrophils % (Manual) 75 H (40-60) % Band Neutrophils % 0 (0-10) % Lymphocytes % (Manual) 13 L (20-40) % Atypical Lymphs % 0 % Monocytes % (Manual) 10 (2-10) % Eosinophils % (Manual) 2 (0.8-7.0) % Basophils % (Manual) 0 L (0.2-1.2) Platelet Estimate Adequate Anisocytosis 1+ slight RBC Morph Comment Not Reportable ESR 12 (0-15) mm/hr D-Dimer, Quantitative (0.19-0.50) mg/L Sodium 143 (136-145) mEq/L Potassium 3.6 (3.5-5.1) mEq/L Chloride 104 (98-107) mEq/L Carbon Dioxide 28 (21-32) mEq/L Anion Gap 14.6 (5-15) BUN 17 (7-18) mg/dL Creatinine 0.9 (0.7-1.3) mg/dL Est Cr Clr Drug Dosing 107.78 mL/min Estimated GFR (MDRD) > 60 (>60) mL/min BUN/Creatinine Ratio 18.9 H (14-18) Glucose 124 H (74-106) mg/dL Lactic Acid (0.4-2.0) mmol/L Calcium 8.5 (8.5-10.1) mg/dL Magnesium 1.7 L (1.8-2.4) mg/dl Total Bilirubin 0.4 (0.2-1.0) mg/dL AST 27 (15-37) U/L ALT 33 (16-63) U/L Alkaline Phosphatase 56 (46-116) U/L C-Reactive Protein 0.5 (<1.0) mg/dL Total Protein 7.0 (6.4-8.2) g/dl Albumin 3.7 (3.4-5.0) g/dl Globulin 3.3 gm/dL Albumin/Globulin Ratio 1.1 (1-2) Lipase (73-393) U/L 08/07/19 08/07/19 08/07/19 Range/Units 11:25 11:25 11:25 WBC (4.23-9.07) K/mm3 RBC (4.63-6.08) M/mm3 Hgb (13.7-17.5) gm/dl Hct (40.1-51.0) % MCV (79.0-92.2) fl MCH (25.7-32.2) pg MCHC (32.2-35.5) g/dl RDW Std Deviation (35.1-43.9) fL Plt Count (163-337) K/mm3 MPV (9.4-12.3) fl Neutrophils % (Manual) (40-60) % Band Neutrophils % (0-10) % Lymphocytes % (Manual) (20-40) % Atypical Lymphs % % Monocytes % (Manual) (2-10) % Eosinophils % (Manual) (0.8-7.0) % Basophils % (Manual) (0.2-1.2) Platelet Estimate Anisocytosis RBC Morph Comment ESR (0-15) mm/hr D-Dimer, Quantitative 0.59 H (0.19-0.50) mg/L Sodium (136-145) mEq/L Potassium (3.5-5.1) mEq/L Chloride (98-107) mEq/L Carbon Dioxide (21-32) mEq/L Anion Gap (5-15) BUN (7-18) mg/dL Creatinine (0.7-1.3) mg/dL Est Cr Clr Drug Dosing mL/min Estimated GFR (MDRD) (>60) mL/min BUN/Creatinine Ratio (14-18) Glucose (74-106) mg/dL Lactic Acid 0.7 (0.4-2.0) mmol/L Calcium (8.5-10.1) mg/dL Magnesium (1.8-2.4) mg/dl Total Bilirubin (0.2-1.0) mg/dL AST (15-37) U/L ALT (16-63) U/L Alkaline Phosphatase (46-116) U/L C-Reactive Protein (<1.0) mg/dL Total Protein (6.4-8.2) g/dl Albumin (3.4-5.0) g/dl Globulin gm/dL Albumin/Globulin Ratio (1-2) Lipase 265 (73-393) U/L Meds: Medications Discontinued Medications Generic Name Dose Route Start Last Admin Trade Name Freq PRN Reason Stop Dose Admin Acetaminophen 975 mg 08/07/19 10:53 08/07/19 11:37 Tylenol PO 08/07/19 10:54 975 mg ONETIME ONE Administration Fluconazole 150 mg 08/07/19 14:21 08/07/19 14:30 Diflucan PO 08/07/19 14:22 Not Given ONETIME ONE Fluconazole 150 mg 08/07/19 14:21 08/07/19 14:30 Diflucan PO 08/07/19 14:22 150 mg ONETIME ONE Administration Dextrose/Sodium Chloride 1,000 mls @ 999 mls/hr 08/07/19 11:00 08/07/19 11:36 Dextrose 5%-Normal Saline IV 999 mls/hr ASDIRECTED YANA Administration Ketorolac Tromethamine 30 mg 08/07/19 11:00 08/07/19 11:29 Toradol IVPUSH 30 mg ONETIME YANA Administration Metoclopramide HCl 7.5 mg 08/07/19 10:52 08/07/19 11:27 Reglan IVPUSH 08/07/19 10:53 7.5 mg ONETIME ONE Administration - Radiology Interpretation Free Text/Narrative:: 49-year-old male returns to the ED for evaluation of persistent nausea vomiting headache and fever. He does have a mild cough but not productive. Poor oral intake over the last several days. He vomited in spite of taking Zofran this morning. Been ill since last August 02. Influenza screen done at that time was negative. Think specific identified on physical examination as a source for infection. 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 Advised that he would have more of a cough and becoming more progressively short of breath if this was the case. He has had no associated diarrhea. Clinically appears to have some form of viral upper respiratory tract infection such as parainfluenza. I will retest him for influenza. chest x-ray to be done. - Re-Assessments/Exams Free Text/Narrative Re-Assessment/Exam: 08/07/19 12:31 Reveal a slightly elevated white count of 10.48. 75% neutrophils with no band cells reported. Hemoglobin is 14.4 with hematocrit of 44.7. Platelet count is 277,000. Sodium 143 with a potassium of 3.6. Chloride 104 with a bicarb of 28. Anion gap is 14.6. BUN is 17 with a creatinine of 0.9. GFR is greater than 60. Glucose is 124 calcium is 8.5 magnesium slightly low at 1.7. Liver function is normal. C-reactive protein is 0.5 total protein 7.0 with an albumin fraction of 3.7. Influenza screen returned negative once again. X-ray done portably reveals mild cardiomegaly but the visualized portion of the lungs are completely clear with no pleural effusion or pneumothorax or pulmonary infiltrates. Portable chest x-ray is completely normal as well. 08/07/19 14:39 lipase is 265. Patient advised of the findings. Appears that he has some form of viral upper respiratory tract infection such as parainfluenza. Refilled his Zofran to be taken every 6 hours as needed for nausea vomiting relief. He will use acetaminophen 650 mg every 4 hours as needed for fever relief since he is vomiting I do want him on Motrin.He will take Diflucan 150mg today then one tablet in a weeks time. He is to be reviewed and 72 hours time if not markedly improved. Note given to excuse him from the workplace until Tuesday next week. D-dimer is pending Departure - Departure Time of Disposition: 13:48 Disposition: Home, Self-Care 01 Condition: Fair Clinical Impression: Viral upper respiratory tract infection, Suspected exposure to mold - Discharge Information *PRESCRIPTION DRUG MONITORING PROGRAM REVIEWED*: Not Applicable *COPY OF PRESCRIPTION DRUG MONITORING REPORT IN PATIENT ARIADNA: Not Applicable Prescriptions: Ondansetron [Zofran ODT] 4 mg PO Q6H PRN #8 tab.dis PRN Reason: nausea or vomiting Instructions: Viral Respiratory Infection, [id number] Referrals: Sebastian Flood MD [Primary Care Provider] - Forms: ED Department Discharge, ED Return to Work/School Form Additional Instructions: Evaluation in the emergency room in regards to persistent upper respiratory tract symptoms with minimal cough but persistent fever and intermittent nausea and vomiting. No diarrhea. No significant sinus congestion or nasal congestion. Repeat investigations for influenza proved to be negative. Chest x -ray was also negative for any pneumonia or signs of mold or fungi infection. Treated with intravenous fluids while in the ED and Toradol and Reglan for nausea and fever relief as well as Tylenol for fever relief. To upset stomach would suggest Tylenol 650 mg every 4 hours as needed for fever relief. Believe that you have a viral upper respiratory tract infection such as parainfluenza virus infection which is often associate with upper GI symptoms. 10 you Zofran 4 mg under the tongue every 6 hours as needed for nausea or vomiting relief. On all as needed for fever relief. Medication today will be Diflucan 150 mg today and repeat in a week's time due to exposure to potential mold in the workplace. Exposure to mold usually causes a very productive purulent looking cough. It Rarely would cause you to have a fever. Need to stop your Plaquenil while taking the Diflucan for the next week. Suggest stopping it completely for 10 days starting today. Restart the Plaquenil in 10 days time. Off work the rest of this week and tentatively may return on Tuesday next week. If not markedly improved by Tuesday or Tuesday you should be reviewed again. 10 you to take in plenty of fluids such as Gatorade or Powerade to maintain hydration. Soft diet and avoid spicy foods and other irritants Sepsis Event Note - Evaluation Sepsis Screening Result: No Definite Risk - Focused Exam Vital Signs: Vital Signs Temp Pulse Resp BP Pulse Ox 08/07/19 13:22 36.7 C 78 12 112/89 88 L 08/07/19 09:55 36.7 C 80 18 148/105 H 88 L Date Exam was Performed: 08/07/19 Time Exam was Performed: 20:03 - My Orders Last 24 Hours: My Active Orders 08/07/19 10:54 Blood Culture x2 Reflex Set [OM.PC] Stat 08/07/19 11:25 CULTURE BLOOD [BC] Stat 08/07/19 11:34 CULTURE BLOOD [BC] Stat - Assessment/Plan Last 24 Hours: My Active Orders 08/07/19 10:54 Blood Culture x2 Reflex Set [OM.PC] Stat 08/07/19 11:25 CULTURE BLOOD [BC] Stat 08/07/19 11:34 CULTURE BLOOD [BC] Stat
[2019-08-07] MEDS ORDERED: Ketorolac 30 MG/ML SDV IVPUSH SCH (11:00)
[2019-08-07] MEDS ORDERED: Dextrose 5%-0.9% NaCl 1,000 ML IV SCH (11:00)
--- NOTE | 2019-08-07 12:10 | CR ---
Chest: Portable view of the chest was obtained. Comparison: Prior chest x-ray of 08/05/19. Heart size and mediastinum are within normal limits for portable technique. Mild scarring is noted within the left upper lung. Lungs otherwise are clear with no acute parenchymal change. Right shoulder prosthesis is partially visualized. Impression: 1. Findings as noted above. 2. Nothing acute is appreciated. Diagnostic code #2 Study was dictated in [place] Standard Time
[2019-08-07] MEDS ORDERED: Fluconazole 150 MG Tab PO ONE ×2 (14:21)
== END 2019-08-07 14:31 | disposition home or self-care (01) ==
LOC: JD.ED 09:40
DX: J06.9 Acute upper respiratory infection, unspecified (principal); I10 Essential (primary) hypertension; E78.00 Pure hypercholesterolemia, unspecified; M06.9 Rheumatoid arthritis, unspecified; F41.9 Anxiety disorder, unspecified; F32.9 Major depressive disorder, single episode, unspecified; E11.9 Type 2 diabetes mellitus without complications; E03.9 Hypothyroidism, unspecified; Z88.8 Allergy status to other drugs, medicaments and biological substances; Z91.018 Allergy to other foods; Z79.899 Other long term (current) drug therapy; Z79.84 Long term (current) use of oral hypoglycemic drugs
CPT/HCPCS: 36415; 71045; 80053; 83605; 83690; 83735; 85007; 85027; 85379; 85652; 86140; 87040; 87804; 96361; 96374; 96375; 99284; A9270; J1885; J2765; J7042

== ENCOUNTER 2020-08-14 18:01 | Emergency (ER) | payer BC, MEDICARE ==
[2020-08-14] MEDS ORDERED: Ketorolac 60 MG/2 ML SDV IM ONE (18:46)
--- NOTE | 2020-08-14 19:02 | EDM.PDOC ---
ED HPI GENERAL MEDICAL PROBLEM - General Chief Complaint: Headache Stated Complaint: SEVERE HEADACHE Time Seen by Provider: 08/14/20 18:39 Source of Information: Reports: Patient, RN Notes Reviewed History Limitations: Reports: No Limitations - History of Present Illness INITIAL COMMENTS - FREE TEXT/NARRATIVE: Patient is a 50-year-old male presenting to the emergency department with complaints of head pressure/headache for the last 3 weeks as well as a cough for the last 2 weeks. He denies any vision changes or dizziness associated with this headache. He states that his blood pressure has been elevated for the past month, however does not have a blood pressure cuff at home and states that he does not check his blood pressures regularly. Initial blood pressure in ER was found to be 166/102, however at the time of my exam it had improved to 147/94. He describes a frontal headache that was over the top of his head. He was seen at the [facility] walk-in clinic today and diagnosed with a sinus infection. He was started on Augmentin for the treatment of this. He is concerned that he could "have an aneurysm ". His primary care doctor is Dr. Flood in [place]. He has not contacted him to discuss his concerns with regard to his elevated blood pressures. Past medical history is significant for high cholesterol, type 2 diabetes, and hypertension. Headache Pain Score (Numeric/FACES): 8 - Related Data Allergies Allergy/AdvReac Type Severity Reaction Status Date / Time cefazolin [From Anc] Allergy Rash Verified 08/14/20 18:11 grape Allergy Hives Verified 08/14/20 18:11 Home Meds: Home Meds dilTIAZem HCL [Cartia Xt] 240 mg PO DAILY 03/30/18 [History] glipiZIDE [Glipizide Xl] 5 mg PO BID 03/30/18 [History] Indapamide 2.5 mg PO DAILY 03/21/19 [History] Amoxicillin/Clavulanate K [Augmentin 875-125 MG] 1 tab PO BID 08/14/20 [History] Cannibis Oil 1 drop PO BID 08/14/20 [History] Fulvic Acid 0.5 tsp PO BID 08/14/20 [History] Saxagliptin HCl [Onglyza] 5 mg PO DAILY 08/14/20 [History] atorvaSTATin [Lipitor] 80 mg PO DAILY 08/14/20 [History] Past Medical History HEENT History: Reports: Allergic Rhinitis, Impaired Vision, Other (See Below) Other HEENT History: wears glasses Cardiovascular History: Reports: High Cholesterol, Hypertension Respiratory History: Reports: Pneumonia, Recurrent Other Respiratory History: pt was in "coma" for 1 month Gastrointestinal History: Reports: Diverticulosis, Other (See Below) Other Gastrointestinal History: cdiff with fecal transplant Genitourinary History: Reports: Renal Disease, Other (See Below) Other Genitourinary History: states RA has affected kidney function. 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 Oncologic (Cancer) History: Reports: None Dermatologic History: Reports: None - Infectious Disease History Infectious Disease History: Reports: C-Difficile, Chicken Pox, MRSA, Other (See Below) Other Infectious Disease History: H1N1 - Past Surgical History Respiratory Surgical History: Reports: None, Lung Biopsies GI Surgical History: Reports: Colostomy, Other (See Below) Other GI Surgeries/Procedures: colostomy with take down 15 years ago (approx 2003) Male Surgical History: Reports: None Neurological Surgical History: Reports: None Musculoskeletal Surgical History: Reports: Hip Replacement, Shoulder Surgery Other Musculoskeletal Surgeries/Procedures:: left total hip replacement, right shoulder surgery, bilateral wrist replacements Oncologic Surgical History: Reports: None Dermatological Surgical History: Reports: None Social & Family History - Tobacco Use Tobacco Use Status *Q: Never Tobacco User Second Hand Smoke Exposure: No - Caffeine Use Caffeine Use: Reports: None Other Caffeine Use: rarely - Recreational Drug Use Recreational Drug Use: Yes Recreational Drug Type: Reports: Marijuana/Hashish Recreational Drug Use Frequency: Rarely - Living Situation & Occupation Occupation: Employed ED ROS GENERAL - Review of Systems Review Of Systems: Comprehensive ROS is negative, except as noted in HPI. - Physical Exam Exam: See Below General Appearance: Alert, WD/WN, No Apparent Distress Eye Exam: Bilateral Eye: Normal Inspection, PERRL Ears: Normal External Exam, Normal Canal, Hearing Grossly Normal, Normal TMs Throat/Mouth: Normal Inspection, Normal Lips, Normal Teeth, Normal Gums, Normal Oropharynx, Normal Voice, No Airway Compromise Head Exam: Atraumatic, Normocephalic Respiratory/Chest: No Respiratory Distress, Lungs Clear, Normal Breath Sounds, No Accessory Muscle Use, Chest Non-Tender Cardiovascular: Normal Peripheral Pulses, Regular Rate, Rhythm, No Edema, No Gallop, No JVD, No Murmur, No Rub Neuro Exam (Abbreviated): Alert, Oriented, CN II-XII Intact, Normal Cognition, Normal Gait, Normal Reflexes, No Motor/Sensory Deficits Psychiatric: Normal Affect, Normal Mood Skin Exam: Warm, Dry, Intact, Normal Color, No Rash Course - Vital Signs Last Recorded V/S: Last Vital Signs Temp 97.9 F 08/14/20 18:07 Pulse 74 08/14/20 18:07 Resp 17 08/14/20 18:07 BP 166/102 H 08/14/20 18:07 Pulse Ox 94 L 08/14/20 18:07 - Orders/Labs/Meds Meds: Medications Discontinued Medications Generic Name Dose Route Start Last Admin Trade Name Mady PRN Reason Stop Dose Admin Ketorolac Tromethamine 60 mg 08/14/20 18:46 08/14/20 19:14 Ketorolac 60 Mg/2 Ml Sdv IM 08/14/20 18:47 60 mg ONETIME ONE Administration - Re-Assessments/Exams Free Text/Narrative Re-Assessment/Exam: 08/14/20 19:42 CT scan shows no acute abnormalities. Patient is feeling better after the Toradol. We will discharge him home with recommendation to continue his Augmentin. Also recommend that he purchase a home blood pressure cuff and check his blood pressures daily. Keep a log of this and contact his primary care provider on Tuesday. Discharge instructions as document. Departure - Departure Time of Disposition: 19:43 Disposition: Home, Self-Care 01 Condition: Good Clinical Impression: Headache Qualifiers: Headache type: unspecified Headache chronicity pattern: acute headache - Discharge Information *PRESCRIPTION DRUG MONITORING PROGRAM REVIEWED*: No *COPY OF PRESCRIPTION DRUG MONITORING REPORT IN PATIENT ARIADNA: No Instructions: Sinus Headache Referrals: Sebastian Flood MD [Primary Care Provider] - Forms: ED Department Discharge Additional Instructions: You were seen in the emergency department for evaluation with regards to headache, and cough. You were seen in the walk-in clinic earlier today and started on Augmentin for sinus infection. CT scan of your head was completed and found to be normal. While in the ER, you received an injection of Toradol which did improve your headache. Recommend routine Tylenol and ibuprofen as needed for discomfort. Purchase a blood pressure cuff to use at home. Check your blood pressure daily and keep a log of the readings. Contact your primary care provider next week with the results of your blood pressure readings and to discuss adjustments in your blood pressure medications as needed. Continue the Augmentin as previously prescribed. Return to ER for any new or worsening symptoms of concern. Sepsis Event Note (ED) - Evaluation Sepsis Screening Result: No Definite Risk
--- NOTE | 2020-08-14 19:36 | CT ---
Head CT Technique: Multiple axial sections through the brain were obtained. Reconstructed coronal and sagittal images were obtained. Comparison: No prior intracranial imaging is available. Findings: Ventricles along with basal cisterns and sulci over the convexities appear within normal limits for the patient's age. No abnormal parenchymal densities are seen. No evidence of intracranial hemorrhage. No midline shift or mass-effect is appreciated. Bone window settings were reviewed. Visualized mastoid and paranasal sinuses show nothing acute. No acute calvarial abnormality is appreciated. Impression: 1. Nothing acute is identified on noncontrast head CT exam. Diagnostic code #1
== END 2020-08-14 19:57 | disposition home or self-care (01) ==
LOC: JD.ED 18:01
DX: R51.9 Headache, unspecified (principal); R05 Cough; I10 Essential (primary) hypertension; E78.00 Pure hypercholesterolemia, unspecified; E11.9 Type 2 diabetes mellitus without complications; Z88.1 Allergy status to other antibiotic agents; Z91.018 Allergy to other foods; Z79.84 Long term (current) use of oral hypoglycemic drugs; Z79.899 Other long term (current) drug therapy
CPT/HCPCS: 70450; 96372; 99284; J1885; 99283

== ENCOUNTER 2021-07-05 07:52 | Emergency (ER) | payer MEDICARE, BC ==
[2021-07-05 08:49] LABS: CORONAVIRUS COVID-19 NAA NEGATIVE (NEGATIVE)
[2021-07-05] MEDS ORDERED: Ketorolac 60 MG/2 ML SDV IM ONE (09:48)
== END 2021-07-05 10:15 | disposition home or self-care (01) ==
LOC: JD.ED 07:52
DX: J06.9 Acute upper respiratory infection, unspecified (principal); J01.90 Acute sinusitis, unspecified; E78.00 Pure hypercholesterolemia, unspecified; I10 Essential (primary) hypertension; E11.9 Type 2 diabetes mellitus without complications; E03.9 Hypothyroidism, unspecified; Z91.018 Allergy to other foods; Z88.1 Allergy status to other antibiotic agents; Z79.899 Other long term (current) drug therapy; Z20.822 Contact with and (suspected) exposure to COVID-19
CPT/HCPCS: 0241U; 71045; 96372; 99283; J1885; 99284

== ENCOUNTER 2022-05-10 14:50 | Emergency (ER) | payer BC, MEDICARE ==
[2022-05-10] MEDS ORDERED: Sodium Chloride 0.9% 10 ML Syringe FLUSH PRN (15:21)
[2022-05-10] MEDS ORDERED: Ondansetron 4 MG/2 ML SDV IVPUSH ONE (15:22)
[2022-05-10] MEDS ORDERED: Sodium Chloride 0.9% 1,000 ML IV ONE (15:22)
[2022-05-10] MEDS ORDERED: Ketorolac 30 MG/ML SDV IVPUSH ONE (16:37)
[2022-05-10 18:25] LABS: CORONAVIRUS COVID-19 NAA POSITIVE (NEGATIVE)
== END 2022-05-10 18:36 | disposition home or self-care (01) ==
LOC: JD.ED 14:50
DX: U07.1 COVID-19 (principal); J10.1 Influenza due to other identified influenza virus with other respiratory manifestations; E78.00 Pure hypercholesterolemia, unspecified; I10 Essential (primary) hypertension; E11.9 Type 2 diabetes mellitus without complications; Z88.1 Allergy status to other antibiotic agents; Z91.018 Allergy to other foods; Z79.899 Other long term (current) drug therapy
CPT/HCPCS: 0240U; 36415; 71046; 80053; 85025; 86140; 96361; 96374; 96375; 99284; J1885; J2405; J3490; J7030

== ENCOUNTER 2024-02-28 07:47 | Emergency (ER) | payer BC | END 2024-02-28 08:45 | disposition home or self-care (01) | LOC: JD.ED 07:47 | DX: F41.0 Panic disorder [episodic paroxysmal anxiety] (principal); I10 Essential (primary) hypertension; E11.9 Type 2 diabetes mellitus without complications; E03.9 Hypothyroidism, unspecified; Z86.16 Personal history of COVID-19; Z79.899 Other long term (current) drug therapy; Z88.8 Allergy status to other drugs, medicaments and biological substances; Z91.018 Allergy to other foods | CPT/HCPCS: 99283 ==

== ENCOUNTER 2025-05-09 12:23 | Emergency (ER) | payer BC, OTHER ==
[2025-05-09] MEDS: Ketorolac 30 MG/ML SDV IVPUSH ONE (13:55)
[2025-05-09] MEDS: Sodium Chloride 0.9% 10 ML Syringe FLUSH PRN (13:56)
[2025-05-09 14:15] LABS: A/G RATIO 0.8 (1-2); ALANINE AMINOTRANSFERASE,ALT 25.0 U/L (16-63); ASPARTATE AMNIOTRANSFERASE,AST 11.0 U/L (15-37); BILIRUBIN TOTAL 0.7 mg/dL (0.2-1.0); BLOOD UREA NITROGEN,BUN 15.0 mg/dL (7-18); CARBON DIOXIDE,CO2 28.0 mEq/L (21-32); CHLORIDE,CL 99.0 mEq/L (98-107); CREATININE 1.0 mg/dL (0.7-1.3); EST CRCL DRUG DOSING (CG) 98.58 mL/min; ESTIMATED GFR 88.0 mL/min (>60); POTASSIUM,K 3.4 mEq/L (3.5-5.1); PROTEIN TOTAL,TP 7.1 g/dl (6.4-8.2); SODIUM,NA 136.0 mEq/L (136-145)
[2025-05-09 14:16] LABS: BASOPHILS ABSOLUTE AUTO 0.1 K/mm3 (0.0-0.2); BASOPHILS PERCENT AUTO 0.6 % (0.0-1.0); EOSINOPHILS ABSOLUTE AUTO 0.2 K/mm3 (0.0-0.4); EOSINOPHILS PERCENT AUTO 2.0 % (0.0-6.0); IMMATURE GRAN ABSOLUTE AUTO 0.04 K/mm3 (0.00-0.05); IMMATURE GRAN PERCENT AUTO 0.4 % (0.0-0.4); LYMPHOCYTES ABSOLUTE AUTO 1.2 K/mm3 (1.0-4.8); LYMPHOCYTES PERCENT AUTO 12.9 % (24.0-44.0); MEAN PLATELET VOLUME 9.8 fl (9.4-12.4); MONOCYTES ABSOLUTE AUTO 1.4 K/mm3 (0.0-0.8); MONOCYTES PERCENT AUTO 14.3 % (0.0-8.0); NEUTROPHILS ABSOLUTE AUTO 6.7 K/mm3 (1.8-7.7); NEUTROPHILS PERCENT AUTO 69.8 % (41.0-71.0); NRBC ABSOLUTE 0.00 (0.00-0.02); NRBC PERCENT 0.0 % (0.0-0.2); PLATELET COUNT,PLT 244 K/mm3 (150-400); RED BLOOD CELL COUNT 5.13 M/mm3 (4.52-5.90); WHITE BLOOD CELL COUNT,WBC 9.60 K/mm3 (3.9-11.3)
[2025-05-09 14:28] LABS: GLUCOSE RANDOM 417.0 mg/dL (70-99)
[2025-05-09] MEDS: Iopamidol 612 MG/ML 100 ML Bottle IVPUSH ONE (15:04)
[2025-05-09] MEDS: Sodium Chloride 0.9% 10 ML Syringe FLUSH ONE (15:04)
[2025-05-09] MEDS ORDERED: Acetaminophen/HYDROcodone 325-5 MG Tab PO ONE (15:30)
[2025-05-09] MEDS: Insulin Regular, Human 100 Units/ML 10 ML Vial SUBCUT ONE (15:46)
== END 2025-05-09 16:41 | disposition home or self-care (01) ==
LOC: JD.ED 12:23
DX: J01.00 Acute maxillary sinusitis, unspecified (principal); E78.00 Pure hypercholesterolemia, unspecified; I10 Essential (primary) hypertension; E03.9 Hypothyroidism, unspecified; E11.9 Type 2 diabetes mellitus without complications; Z91.018 Allergy to other foods; Z88.1 Allergy status to other antibiotic agents; Z79.84 Long term (current) use of oral hypoglycemic drugs; Z79.899 Other long term (current) drug therapy
CPT/HCPCS: 36415; 70487; 80053; 82947; 83036; 85025; 86140; 96374; 96375; 99284; A9270; J1815; J1885; Q9967; 99283; J1171

== ENCOUNTER 2025-05-11 18:13 | Emergency (ER) | payer BC ==
[2025-05-11] MEDS: valACYclovir 1,000 MG Tab PO ONE (19:14)
[2025-05-11] MEDS: Ondansetron 4 MG/2 ML SDV IVPUSH ONE (19:15)
[2025-05-11] MEDS: Fluorescein 1 MG Ophth Strip EYELF ONE (19:25)
[2025-05-11 19:33] LABS: BASOPHILS ABSOLUTE AUTO 0.1 K/mm3 (0.0-0.2); BASOPHILS PERCENT AUTO 0.5 % (0.0-1.0); EOSINOPHILS ABSOLUTE AUTO 0.0 K/mm3 (0.0-0.4); EOSINOPHILS PERCENT AUTO 0.2 % (0.0-6.0); IMMATURE GRAN ABSOLUTE AUTO 0.05 K/mm3 (0.00-0.05); IMMATURE GRAN PERCENT AUTO 0.5 % (0.0-0.4); LYMPHOCYTES ABSOLUTE AUTO 1.4 K/mm3 (1.0-4.8); LYMPHOCYTES PERCENT AUTO 14.6 % (24.0-44.0); MEAN PLATELET VOLUME 9.4 fl (9.4-12.4); MONOCYTES ABSOLUTE AUTO 1.7 K/mm3 (0.0-0.8); MONOCYTES PERCENT AUTO 17.0 % (0.0-8.0); NEUTROPHILS ABSOLUTE AUTO 6.6 K/mm3 (1.8-7.7); NEUTROPHILS PERCENT AUTO 67.2 % (41.0-71.0); NRBC ABSOLUTE 0.00 (0.00-0.02); NRBC PERCENT 0.0 % (0.0-0.2); PLATELET COUNT,PLT 291 K/mm3 (150-400); RED BLOOD CELL COUNT 5.84 M/mm3 (4.52-5.90); WHITE BLOOD CELL COUNT,WBC 9.81 K/mm3 (3.9-11.3)
[2025-05-11 19:52] LABS: A/G RATIO 0.7 (1-2); ALANINE AMINOTRANSFERASE,ALT 23.0 U/L (16-63); ASPARTATE AMNIOTRANSFERASE,AST 12.0 U/L (15-37); BILIRUBIN TOTAL 0.7 mg/dL (0.2-1.0); BLOOD UREA NITROGEN,BUN 24.0 mg/dL (7-18); CARBON DIOXIDE,CO2 25.0 mEq/L (21-32); CHLORIDE,CL 92.0 mEq/L (98-107); CREATININE 1.2 mg/dL (0.7-1.3); EST CRCL DRUG DOSING (CG) 75.44 mL/min; ESTIMATED GFR 71.0 mL/min (>60); GLUCOSE RANDOM 388.0 mg/dL (70-99); POTASSIUM,K 3.2 mEq/L (3.5-5.1); PROTEIN TOTAL,TP 7.6 g/dl (6.4-8.2); SODIUM,NA 133.0 mEq/L (136-145)
[2025-05-11] MEDS: Sodium Chloride 0.9% 10 ML Syringe FLUSH PRN (20:31)
[2025-05-11] MEDS: fentaNYL 100 MCG/2 ML SDV IVPUSH ONE (21:14)
== END 2025-05-11 22:18 | disposition home or self-care (01) ==
LOC: JD.ED 18:13
DX: B02.9 Zoster without complications (principal); I10 Essential (primary) hypertension; E11.9 Type 2 diabetes mellitus without complications; E03.9 Hypothyroidism, unspecified; E86.0 Dehydration; Z88.8 Allergy status to other drugs, medicaments and biological substances; Z79.899 Other long term (current) drug therapy; Z86.16 Personal history of COVID-19
CPT/HCPCS: 36415; 71045; 80053; 85025; 94762; 96360; 96374; 96375; 96376; 99285; A9270; J2405; J3010; J7030; 99283; J1171